=== PATIENT | male | born 1970 | race Caucasian/White ===

== ENCOUNTER 2024-05-31 19:16 | Emergency (ER) | payer BC, SELFPAY ==
[2024-05-31 19:18] VITALS: BP 137/100; PULSE 73; RESP 18; TEMP 36.6; O2SAT 95; BMI 31.6
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
--- NOTE | 2024-05-31 19:54 | RAD_ITS ---
INDICATION: Trauma EXAMINATION/TECHNIQUE: X-RAY - XR Ribs Unilateral W/ PA Chest Min 3 Views COMPARISON: FINDINGS: SOFT TISSUES: No soft tissue swelling or gas. BONES: No displaced fracture. No sclerotic or destructive changes observed. VISUALIZED LUNGS: Clear. No pneumothorax. RAD/Ribs Uni Min 3V w/PA Chest IMPRESSION: No evidence of displaced rib fracture. Electronically Signed: Mitali Rivera MD at 20:51 EDT Reading Location ID and State: [id number] / Tel , Service support ,
--- OUTSIDE RECORDS SUMMARY | 2024-05-31 19:55 | XMS RPT_ITS | CCD ---
Author Organization [facility] CliniSyia Care Team Providers Care Second Operator Name Role Phone LULI RUBY DR~ NEWT[place] Admitting Unavailable NEWTON ROCKWELL MD Consulting Unavailabl e LULI RUBY DR~ [place] Attending Unavailable LULI RUBY, ~ [place] Primary Care Unavailable DR NEWTON ROCKWELL MD Consulting Unavail able NONE, NONE Consulting Unavailable NONE, NONE Consulting Unavailable LULI RUBY, [place] Consulting Unavailabl e GINNY HEMP FIBER TAKER OFF~[phone], GINNY Hunter Att ending Unavailable JUANBALATONIA HEMP FIBER TAKER OFF~[phone], GINNY Hunter Adm itting Unavailable LULI RUBY DR~ [place] Primary Care Unavailable DR NEWTON ROCKWELL MD Consulting Unavail able GINNY HUERTA PATRICIA Elsa Consulting Unavailab le PATRICIA GROSS APRN Consulting Unavailab le Problems Problem Classification Problem Date Documented Da te Episodic/Chronic Allergic reactions (3 sources) Intrinsic (allergic) eczema; Translations: [INTRINSIC ALLERGIC ECZEMA] Onset: 05-26-2024 Chronic Other screening for suspected conditions (not mental disorders or infectious disease) (1 source) Encounter for screening for malignant neoplasm of prostate; Translations: [ENC SCREEN MALIG NEOPLASM PROSTATE] Onset: 05-13-2024 Episodic Results Test Name Value Interpretation Reference Range Facil ity RAST BASIC FOOD PANELon 05-07 Class Description Comment Normal [facility] Comment on above: Result Comment: Wilfredo de la o of Specific IgE Class Description of Class ----- < 0.10 0 Negative 0.10 - 0.31 0/I Equivocal/Low 0.32 - 0.55 I Low 0.56 - 1.40 II Moderate 1.41 - 3.90 III High 3.91 - 19.00 IV Very High 19.01 - 100.00 V Very High >100.00 Very High Performed By: #### M APLE, RAGWEED, LAMBS, ETHIOPIAN, BERMUDA, CAT, MITE, ATENUIS, OAK, DOG #### Performed for [address] [address] [id number] Milk (Cow) <0.10 Normal Class 0 [facility] Comment on above: Performed By: #### M APLE, RAGWEED, LAMBS, ETHIOPIAN, BERMUDA, CAT, MITE, ATENUIS, OAK, DOG #### Performed for [place] [address] [id number] Codfish <0.10 Normal Class 0 [facility] Comment on above: Performed By: #### M APLE, RAGWEED, LAMBS, ETHIOPIAN, BERMUDA, CAT, MITE, ATENUIS, OAK, DOG #### Performed for [address] [address] [id number] Wheat <0.10 Normal Class 0 [facility] Comment on above: Performed By: #### M APLE, RAGWEED, LAMBS, ETHIOPIAN, BERMUDA, CAT, MITE, ATENUIS, OAK, DOG #### Performed for [address] [address] [id number] [place] <0.10 Normal Class 0 [facility] Comment on above: Performed By: #### M APLE, RAGWEED, LAMBS, ETHIOPIAN, BERMUDA, CAT, MITE, ATENUIS, OAK, DOG #### Performed for [place] [address] [id number] Peanut <0.10 Normal Class 0 [facility] Comment on above: Performed By: #### M APLE, RAGWEED, LAMBS, ETHIOPIAN, BERMUDA, CAT, MITE, ATENUIS, OAK, DOG #### Performed for [address] [place], [place] [address] [id number] Soybean <0.10 Normal Class 0 [facility] Comment on above: Performed By: #### M APLE, RAGWEED, LAMBS, ETHIOPIAN, BERMUDA, CAT, MITE, ATENUIS, OAK, DOG #### Performed for [address] [address] [id number] Shrimp <0.10 Normal Class 0 [facility] Comment on above: Performed By: #### M APLE, RAGWEED, LAMBS, ETHIOPIAN, BERMUDA, CAT, MITE, ATENUIS, OAK, DOG #### Performed for [address] [address] [id number] Pork <0.10 Normal Class 0 [facility] Comment on above: Performed By: #### M APLE, RAGWEED, LAMBS, ETHIOPIAN, BERMUDA, CAT, MITE, ATENUIS, OAK, DOG #### Performed for [address] [address] [id number]-ZmS Beef <0.10 Normal Class 0 [facility] Comment on above: Performed By: #### M APLE, RAGWEED, LAMBS, ETHIOPIAN, BERMUDA, CAT, MITE, ATENUIS, OAK, DOG #### Performed for [address] [address] [id number] Mussel <0.10 Normal Class 0 [facility] Comment on above: Performed By: #### M APLE, RAGWEED, LAMBS, ETHIOPIAN, BERMUDA, CAT, MITE, ATENUIS, OAK, DOG #### Performed for [address] [address] [id number] Chocolate/Hodge <0.10 Normal Class 0 [facility] Comment on above: Performed By: #### M APLE, RAGWEED, LAMBS, ETHIOPIAN, BERMUDA, CAT, MITE, ATENUIS, OAK, DOG #### Performed for [address] [address] [id number] Egg, Whole <0.10 Normal Class 0 [facility] Comment on above: Performed By: #### M APLE, RAGWEED, LAMBS, ETHIOPIAN, BERMUDA, CAT, MITE, ATENUIS, OAK, DOG #### Performed for [address] [address] Ig E, [place] <0.10 Normal Class 0 [facility] Comment on above: Performed By: #### M APLE, RAGWEED, LAMBS, ETHIOPIAN, BERMUDA, CAT, MITE, ATENUIS, OAK, DOG #### Performed for [address] [address] Ig E, Tuna <0.10 Normal Class 0 [facility] Comment on above: Performed By: #### M APLE, RAGWEED, LAMBS, ETHIOPIAN, BERMUDA, CAT, MITE, ATENUIS, OAK, DOG #### Performed for [address] [address] ALTERNARIA alternata/tenuiso n 05-30-2024 [id number] Alternaria tenuis <0.10 Normal Class 0 [facility] Comment on above: Performed By: #### M APLE, RAGWEED, LAMBS, ETHIOPIAN, BERMUDA, CAT, MITE, ATENUIS, OAK, DOG #### Performed for [address] [address] RAST BERMUDA GRASSon 024 [id number] Bermuda Grass <0.10 Normal Class 0 [facility] Comment on above: Performed By: #### M APLE, RAGWEED, LAMBS, ETHIOPIAN, BERMUDA, CAT, MITE, ATENUIS, OAK, DOG #### Performed for [address] [address] RAST BOX ELDERon 05-30-2024 [id number]-PxM Maple/[place]on <0.10 Normal Class 0 [facility] Comment on above: Performed By: #### M APLE, RAGWEED, LAMBS, ETHIOPIAN, BERMUDA, CAT, MITE, ATENUIS, OAK, DOG #### Performed for [address] [address] RAST CAT DANDERon 05-30-2024 [id number]-UyI Cat Hair/Dander,Alexandre <0.10 Normal Class 0 [facility] Comment on above: Result Comment: Wilfredo ls of Specific IgE Class Description of Class ----- < 0.10 0 Negative 0.10 - 0.31 0/I Equivocal/Low 0.32 - 0.55 I Low 0.56 - 1.40 II Moderate 1.41 - 3.90 III High 3.91 - 19.00 IV Very High 19.01 - 100.00 V Very High >100.00 Very High Performed By: #### M APLE, RAGWEED, LAMBS, ETHIOPIAN, BERMUDA, CAT, MITE, ATENUIS, OAK, DOG #### Performed for [place] [address] [place], [place] [address] RAST CHICKENon 05-30-2024 [id number]-YkG Chicken <0.10 Normal Class 0 [facility] Comment on above: Performed By: #### M APLE, RAGWEED, LAMBS, ETHIOPIAN, BERMUDA, CAT, MITE, ATENUIS, OAK, DOG #### Performed for [address] [address] RAST CLADOSPORIUM HERBARUMon 05-30-2024 [id number] Cladosporium herbaru <0.10 Normal Class 0 [facility] Comment on above: Result Comment: Wilfredo ls of Specific IgE Class Description of Class ----- < 0.10 0 Negative 0.10 - 0.31 0/I Equivocal/Low 0.32 - 0.55 I Low 0.56 - 1.40 II Moderate 1.41 - 3.90 III High 3.91 - 19.00 IV Very High 19.01 - 100.00 V Very High >100.00 Very High Performed By: #### M APLE, RAGWEED, LAMBS, ETHIOPIAN, BERMUDA, CAT, MITE, ATENUIS, OAK, DOG #### Performed for [address] [address] RAST COCKROACH AMERICANon I103-FrC Cockroach,Citizen Of [place] <0.10 Normal Class 0 [facility] Comment on above: Performed By: #### M APLE, RAGWEED, LAMBS, ETHIOPIAN, BERMUDA, CAT, MITE, ATENUIS, OAK, DOG #### Performed for [address] [address] RAST D FARINAE MITEon 2023 E081-YlR D farinae Mite <0.10 Normal Class 0 [facility] Comment on above: Performed By: #### M APLE, RAGWEED, LAMBS, ETHIOPIAN, BERMUDA, CAT, MITE, ATENUIS, OAK, DOG #### Performed for [address] [address] RAST D PTERONYSSINUSon 05-30 R158-TmS D pteronyssinus <0.10 Normal Class 0 [facility] Comment on above: Performed By: #### M APLE, RAGWEED, LAMBS, ETHIOPIAN, BERMUDA, CAT, MITE, ATENUIS, OAK, DOG #### Performed for [address] [address] RAST DOG DANDERon 05-30-2024 T527-GzX Dog Hair/Dander <0.10 Normal Class 0 [facility] Comment on above: Performed By: #### M APLE, RAGWEED, LAMBS, ETHIOPIAN, BERMUDA, CAT, MITE, ATENUIS, OAK, DOG #### Performed for [address] [address] RAST ETHIOPIAN PLANTAINon 05-07 H509-SyH Plantain, Ecuadorean <0.10 Normal Class 0 [facility] Comment on above: Performed By: #### M APLE, RAGWEED, LAMBS, ETHIOPIAN, BERMUDA, CAT, MITE, ATENUIS, OAK, DOG #### Performed for [facility] [address] [place], [place] [address] RAST ARISTIDES BLUEGRASSon [id number]-FyP Bluegrass, Marthay <0.10 Normal Class 0 [facility] Comment on above: Performed By: #### M APLE, RAGWEED, LAMBS, ETHIOPIAN, BERMUDA, CAT, MITE, ATENUIS, OAK, DOG #### Performed for [facility] [address] [place], [place] [address] RAST LAMBS QUARTERon 024 [id number]-QgC [place]'s [place] <0.10 Normal Class 0 [facility] Comment on above: Performed By: #### M APLE, RAGWEED, LAMBS, ETHIOPIAN, BERMUDA, CAT, MITE, ATENUIS, OAK, DOG #### Performed for [place] [address] [place], [place] [address] RAST OAK WHITEon 05-30-2024 [id number]-BlE Lomax, White <0.10 Normal Class 0 [facility] Comment on above: Performed By: #### M APLE, RAGWEED, LAMBS, ETHIOPIAN, BERMUDA, CAT, MITE, ATENUIS, OAK, DOG #### Performed for [place] [address] [place], [place] [address] RAST RAGWEED COMMONon 2023 [id number]-HfW Ragweed, Short/Commo <0.10 Normal Class 0 [facility] Comment on above: Performed By: #### M APLE, RAGWEED, LAMBS, ETHIOPIAN, BERMUDA, CAT, MITE, ATENUIS, OAK, DOG #### Performed for [place] [address] [place], [place] [address] 25-hydroxyvitamin D [Mass/Vo l]on 05-12-2024 25-hydroxyvitamin D3 [Mass/Vol] 48.2 ng/mL Normal 30.0-100.0 [facility] Comment on above: Performed By: #### M APLE, RAGWEED, LAMBS, ETHIOPIAN, BERMUDA, CAT, MITE, ATENUIS, OAK, DOG #### Performed for [facility] [address] [address] HVITD VITAMIN D INTERPRETATION VITAMIN D STATUS RANGE DEFICIENCY <20 ng/mL INSUFFICIENCY 20-30 ng/mL SUFFICIENCY 30-100 ng/mL TOXICITY >100 ng/mL Normal [facility] Comment on above: Performed By: #### M APLE, RAGWEED, LAMBS, ETHIOPIAN, BERMUDA, CAT, MITE, ATENUIS, OAK, DOG #### Performed for [address] [address] CBC W Auto Differential pane l (Bld)on 05-12-2024 Basophils (Bld) [#/Vol] 0.06 10*3/uL Normal <=0.70 [facility] Comment on above: Performed By: #### M APLE, RAGWEED, LAMBS, ETHIOPIAN, BERMUDA, CAT, MITE, ATENUIS, OAK, DOG #### Performed for [address] [address] Basophils/100 WBC (Bld) 1.0 % Normal <=2.0 [facility] Comment on above: Performed By: #### M APLE, RAGWEED, LAMBS, ETHIOPIAN, BERMUDA, CAT, MITE, ATENUIS, OAK, DOG #### Performed for [address] [address] Eosinophils (Bld) [#/Vol] 0.19 10*3/uL Normal <=0.70 [facility] Comment on above: Performed By: #### M APLE, RAGWEED, LAMBS, ETHIOPIAN, BERMUDA, CAT, MITE, ATENUIS, OAK, DOG #### Performed for [address] [address] Eosinophils/100 WBC (Bld) 3.3 % Normal <=10.0 [facility] Comment on above: Performed By: #### M APLE, RAGWEED, LAMBS, ETHIOPIAN, BERMUDA, CAT, MITE, ATENUIS, OAK, DOG #### Performed for [address] [address] Erythrocyte distribution width (RBC) [Entitic vol] 36.6 fL Normal 35.1-43.9 [facility] Comment on above: Performed By: #### M APLE, RAGWEED, LAMBS, ETHIOPIAN, BERMUDA, CAT, MITE, ATENUIS, OAK, DOG #### Performed for [address] [address] Hematocrit (Bld) [Volume fraction] 43.4 % Normal 40.0-54.0 [facility] Comment on above: Performed By: #### M APLE, RAGWEED, LAMBS, ETHIOPIAN, BERMUDA, CAT, MITE, ATENUIS, OAK, DOG #### Performed for [address] [address] Hemoglobin (Bld) [Mass/Vol] 15.0 g/dL Normal 14.0-18.0 [facility] Comment on above: Performed By: #### M APLE, RAGWEED, LAMBS, ETHIOPIAN, BERMUDA, CAT, MITE, ATENUIS, OAK, DOG #### Performed for [address] [address] Immature granulocytes (Bld) [#/Vol] 0.01 10*3/uL Normal <=0.10 [facility] Comment on above: Performed By: #### M APLE, RAGWEED, LAMBS, ETHIOPIAN, BERMUDA, CAT, MITE, ATENUIS, OAK, DOG #### Performed for [address] [address] Immature granulocytes/100 WBC (Bld) 0.20 % Normal <=1.50 [facility] Comment on above: Performed By: #### M APLE, RAGWEED, LAMBS, ETHIOPIAN, BERMUDA, CAT, MITE, ATENUIS, OAK, DOG #### Performed for [address] [address] Lymphocytes (Bld) [#/Vol] 2.24 10*3/uL Normal 1.20-3.40 [facility] Comment on above: Performed By: #### M APLE, RAGWEED, LAMBS, ETHIOPIAN, BERMUDA, CAT, MITE, ATENUIS, OAK, DOG #### Performed for [address] [address] Lymphocytes/100 WBC (Bld) 38.6 % Normal 20.0-40.0 [facility] Comment on above: Performed By: #### M APLE, RAGWEED, LAMBS, ETHIOPIAN, BERMUDA, CAT, MITE, ATENUIS, OAK, DOG #### Performed for [address] [address] MCH (RBC) [Entitic mass] 27.9 pg Normal 27.0-31.0 [facility] Comment on above: Performed By: #### M APLE, RAGWEED, LAMBS, ETHIOPIAN, BERMUDA, CAT, MITE, ATENUIS, OAK, DOG #### Performed for [address] [address] MCHC (RBC) [Mass/Vol] 34.6 g/dL Normal 32.0-36.0 [facility] Comment on above: Performed By: #### M APLE, RAGWEED, LAMBS, ETHIOPIAN, BERMUDA, CAT, MITE, ATENUIS, OAK, DOG #### Performed for [address] [address] MCV (RBC) [Entitic vol] 80.8 fL Normal 80.0-100.0 [facility] Comment on above: Performed By: #### M APLE, RAGWEED, LAMBS, ETHIOPIAN, BERMUDA, CAT, MITE, ATENUIS, OAK, DOG #### Performed for [address] [address] Monocytes (Bld) [#/Vol] 0.60 10*3/uL Normal 0.10-0.60 [facility] Comment on above: Performed By: #### M APLE, RAGWEED, LAMBS, ETHIOPIAN, BERMUDA, CAT, MITE, ATENUIS, OAK, DOG #### Performed for [address] [place] [address], [place] [address] Monocytes/100 WBC (Bld) 10.3 % High <=8.0 [facility] Comment on above: Performed By: #### M APLE, RAGWEED, LAMBS, ETHIOPIAN, BERMUDA, CAT, MITE, ATENUIS, OAK, DOG #### Performed for [place] [address] [place], [place] [address] Neutrophils (Bld) [#/Vol] 2.70 10*3/uL Normal 1.40-6.50 [facility] Comment on above: Performed By: #### M APLE, RAGWEED, LAMBS, ETHIOPIAN, BERMUDA, CAT, MITE, ATENUIS, OAK, DOG #### Performed for [address] [address] Neutrophils/100 WBC (Bld) 46.6 % Low 50.0-70.0 [facility] Comment on above: Performed By: #### M APLE, RAGWEED, LAMBS, ETHIOPIAN, BERMUDA, CAT, MITE, ATENUIS, OAK, DOG #### Performed for [address] [address] Nucleated RBC (Bld) [#/Vol] 0.00 10*3/uL Normal <=0.10 [facility] Comment on above: Performed By: #### M APLE, RAGWEED, LAMBS, ETHIOPIAN, BERMUDA, CAT, MITE, ATENUIS, OAK, DOG #### Performed for [address] [address] Platelet mean volume (Bld) [Entitic vol] 10.7 fL Normal 9.0-13.0 [facility] Comment on above: Performed By: #### M APLE, RAGWEED, LAMBS, ETHIOPIAN, BERMUDA, CAT, MITE, ATENUIS, OAK, DOG #### Performed for [address], [place] [address] Platelets (Bld) [#/Vol] 253 10*3/uL Normal 130-400 [facility] Comment on above: Performed By: #### M APLE, RAGWEED, LAMBS, ETHIOPIAN, BERMUDA, CAT, MITE, ATENUIS, OAK, DOG #### Performed for [facility] [address] [place], [place] [address] RBC (Bld) [#/Vol] 5.37 10*6/uL Normal 4.00-6.30 [facility] Comment on above: Performed By: #### M APLE, RAGWEED, LAMBS, ETHIOPIAN, BERMUDA, CAT, MITE, ATENUIS, OAK, DOG #### Performed for [facility] [address] [place], [place] [address] WBC (Bld) [#/Vol] 5.80 10*3/uL Normal 4.80-10.80 [facility] Comment on above: Performed By: #### M APLE, RAGWEED, LAMBS, ETHIOPIAN, BERMUDA, CAT, MITE, ATENUIS, OAK, DOG #### Performed for [facility] [address] [place], [place] [address] Comprehensive metabolic 2000 panelon 05-12-2024 Albumin [Mass/Vol] 3.9 g/dL Normal 3.4-5.0 [facility] Comment on above: Performed By: #### M APLE, RAGWEED, LAMBS, ETHIOPIAN, BERMUDA, CAT, MITE, ATENUIS, OAK, DOG #### Performed for [facility] [address] [place], [place] [address] ALP [Catalytic activity/Vol] 63 U/L Normal 50-136 [facility] Comment on above: Performed By: #### M APLE, RAGWEED, LAMBS, ETHIOPIAN, BERMUDA, CAT, MITE, ATENUIS, OAK, DOG #### Performed for [facility] [address] [place], [place] [address] ALT [Catalytic activity/Vol] 27 U/L Normal 16-63 [facility] Comment on above: Performed By: #### M APLE, RAGWEED, LAMBS, ETHIOPIAN, BERMUDA, CAT, MITE, ATENUIS, OAK, DOG #### Performed for [facility] [address] [place], [place] [address] Anion gap [Moles/Vol] 5.0 mmol/L Normal <=15.0 [facility] Comment on above: Performed By: #### M APLE, RAGWEED, LAMBS, ETHIOPIAN, BERMUDA, CAT, MITE, ATENUIS, OAK, DOG #### Performed for [facility] [address] [place], [place] [address] AST [Catalytic activity/Vol] 23 U/L Normal 15-37 [facility] Comment on above: Performed By: #### M APLE, RAGWEED, LAMBS, ETHIOPIAN, BERMUDA, CAT, MITE, ATENUIS, OAK, DOG #### Performed for [facility] [address] [place], [place] [address] Bilirubin [Mass/Vol] 0.5 mg/dL Normal 0.2-1.0 [facility] Comment on above: Performed By: #### M APLE, RAGWEED, LAMBS, ETHIOPIAN, BERMUDA, CAT, MITE, ATENUIS, OAK, DOG #### Performed for [facility] [address] [place], [place] [address] Calcium [Mass/Vol] 9.7 mg/dL Normal 8.5-10.1 [facility] Comment on above: Performed By: #### M APLE, RAGWEED, LAMBS, ETHIOPIAN, BERMUDA, CAT, MITE, ATENUIS, OAK, DOG #### Performed for [facility] [address] [place], [place] [address] Chloride [Moles/Vol] 104 mmol/L Normal 98-107 [facility] Comment on above: Performed By: #### M APLE, RAGWEED, LAMBS, ETHIOPIAN, BERMUDA, CAT, MITE, ATENUIS, OAK, DOG #### Performed for [facility] [address] [place], [place] [address] CO2 [Moles/Vol] 31 mmol/L Normal 21-32 [facility] Comment on above: Performed By: #### M APLE, RAGWEED, LAMBS, ETHIOPIAN, BERMUDA, CAT, MITE, ATENUIS, OAK, DOG #### Performed for [facility] [address] [place], [place] [address] Creatinine [Mass/Vol] 0.85 mg/dL Normal 0.67-1.17 [facility] Comment on above: Performed By: #### M APLE, RAGWEED, LAMBS, ETHIOPIAN, BERMUDA, CAT, MITE, ATENUIS, OAK, DOG #### Performed for [facility] [address] [place], [place] [address] GFR/1.73 sq M.predicted MDRD (S/P/Bld) [Vol rate/Area] mL/min/{1.73_m2} Normal >=60 [facility] Comment on above: Performed By: #### M APLE, RAGWEED, LAMBS, ETHIOPIAN, BERMUDA, CAT, MITE, ATENUIS, OAK, DOG #### Performed for [facility] [address] [place], [place] [address] Glucose [Mass/Vol] 90 mg/dL Normal 74-106 [facility] Comment on above: Performed By: #### M APLE, RAGWEED, LAMBS, ETHIOPIAN, BERMUDA, CAT, MITE, ATENUIS, OAK, DOG #### Performed for [facility] [address] [place], [place] [address] HGFR GLOMERULAR FILTRATION RATE INTERPRETATION~The eGFR is calculated using the MDRD equation.~This equation has been validated in patients with chronic kidney disease;~however, it underestimates the GFR in healthy patients with GFR's over 60 mL/min.~The equation is not valid in children under the age of 18.~NOTE: Criteria for Chronic Kidney Disease:~ ~1. Kidney damage for at least three months, as defined~by structural or functional abnormalities of the kidney,~with or without decreased glomerular filtration rate, manifested by either:~* Pathological abnormalities or~* Markers of Kidney damage, including abnormalities in~the composition of the blood or urine or abnormalities in imaging tests.~ ~2. GFR <60 mL/min/1.73 m squared for at least three months, with or without kidney damage.~ Normal [facility] Comment on above: Performed By: #### M APLE, RAGWEED, LAMBS, ETHIOPIAN, BERMUDA, CAT, MITE, ATENUIS, OAK, DOG #### Performed for [facility] [address] [place], [place] [address] Potassium [Moles/Vol] 4.5 mmol/L Normal 3.5-5.1 [facility] Comment on above: Performed By: #### M APLE, RAGWEED, LAMBS, ETHIOPIAN, BERMUDA, CAT, MITE, ATENUIS, OAK, DOG #### Performed for [place] [place], [place] [address] Protein [Mass/Vol] 6.9 g/dL Normal 6.4-8.2 [facility] Comment on above: Performed By: #### M APLE, RAGWEED, LAMBS, ETHIOPIAN, BERMUDA, CAT, MITE, ATENUIS, OAK, DOG #### Performed for [address] [address] Sodium [Moles/Vol] 140 mmol/L Normal 136-145 [facility] Comment on above: Performed By: #### M APLE, RAGWEED, LAMBS, ETHIOPIAN, BERMUDA, CAT, MITE, ATENUIS, OAK, DOG #### Performed for [address] [address] Urea nitrogen [Mass/Vol] 18 mg/dL Normal 9-20 [facility] Comment on above: Performed By: #### M APLE, RAGWEED, LAMBS, ETHIOPIAN, BERMUDA, CAT, MITE, ATENUIS, OAK, DOG #### Performed for [address] [address] HbA1c Calc (Bld) [Mass fract ion]on 05-12-2024 Average glucose Estimated from glycated hemoglobin (Bld) [Mass/Vol] 97 mg/dL Normal 68-125 [facility] Comment on above: Performed By: #### M APLE, RAGWEED, LAMBS, ETHIOPIAN, BERMUDA, CAT, MITE, ATENUIS, OAK, DOG #### Performed for [address] [address] HA1C A1C INTERPRETATION %A1c (NGSP) Interpretation 3.8 - 6.4 Non-Diabetic Range 5.7 - 6.4 Prediabetic >6.5 Action Suggested The eAG (estimated average glucose) is an estimation of one?s average blood glucose level, calculated based on A1C test results, reported using the same units (mg/dL) seen on blood glucose meters. Normal [facility] Comment on above: Performed By: #### M APLE, RAGWEED, LAMBS, ETHIOPIAN, BERMUDA, CAT, MITE, ATENUIS, OAK, DOG #### Performed for [facility] [address] [place], [place] [address] HbA1c (Bld) [Mass fraction] 5.0 %A1C Normal 4.2-6.3 [facility] Comment on above: Performed By: #### M APLE, RAGWEED, LAMBS, ETHIOPIAN, BERMUDA, CAT, MITE, ATENUIS, OAK, DOG #### Performed for [facility] [address] [place], [place] [address] Lipid panel with direct LDLo n 05-12-2024 Cholesterol [Mass/Vol] 176 mg/dL Normal <=200 [facility] Comment on above: Performed By: #### M APLE, RAGWEED, LAMBS, ETHIOPIAN, BERMUDA, CAT, MITE, ATENUIS, OAK, DOG #### Performed for [facility] [address] [place], [place] [address] Cholesterol in HDL [Mass/Vol] 38 mg/dL Low 40-59 [facility] Comment on above: Performed By: #### M APLE, RAGWEED, LAMBS, ETHIOPIAN, BERMUDA, CAT, MITE, ATENUIS, OAK, DOG #### Performed for [facility] [address] [place], [place] [address] Cholesterol in LDL [Mass/Vol] 115 mg/dL High 5-100 [facility] Comment on above: Performed By: #### M APLE, RAGWEED, LAMBS, ETHIOPIAN, BERMUDA, CAT, MITE, ATENUIS, OAK, DOG #### Performed for [facility] [address] [place], [place] [address] Cholesterol in LDL/Cholesterol in HDL [Mass ratio] 3.0 {ratio} Normal [facility] Comment on above: Performed By: #### M APLE, RAGWEED, LAMBS, ETHIOPIAN, BERMUDA, CAT, MITE, ATENUIS, OAK, DOG #### Performed for [facility] [address] [place], [place] [address] Cholesterol.total/Cho lesterol in HDL [Mass ratio] 4.6 {ratio} Normal [facility] Comment on above: Performed By: #### M APLKenisha, RAGWEED, LAMBS, ETHIOPIAN, BERMUDA, CAT, MITE, ATENUIS, OAK, DOG #### Performed for [facility] [address], [place] [address] HCHOL CHOLESTEROL INTERPRETATION Desirable <200 Borderline High 200-239 High >240 Normal [facility] Comment on above: Performed By: #### M APLKenisha, RAGWEED, LAMBS, ETHIOPIAN, BERMUDA, CAT, MITE, ATENUIS, OAK, DOG #### Performed for [id number] [place], [place] [address] HLDL LDL INTERPRETATION Desirable <100 Near Optimal 100-129 Borderline High 130-159 High 160-190 Very High >190 Normal [facility] Comment on above: Performed By: #### M RAMIRO, RAGCOLLINS, LAMBS, ETHIOPIAN, BERMUDA, CAT, MITE, ATENUIS, OAK, DOG #### Performed for [facility] [address] [place], [place] [address] HLIPID ATEROSCLEROSIS RISK FACTORS FOR LDL, HDL, AND CHOLESTEROL RISK FACTOR SEX LDL/HDL CHOL/HDL 1/2 Average M 1.00 3.43 F 1.47 3.27 Average M 3.55 4.97 F 3.22 4.44 2X Average M 6.25 9.55 F 5.03 7.05 3X Average M 7.99 23.39 F 6.14 11.04 Normal [facility] Comment on above: Performed By: #### M APLKenisha, RAGWEED, LAMBS, ETHIOPIAN, BERMUDA, CAT, MITE, ATENUIS, OAK, DOG #### Performed for [address] [place], [place] [address] HTRIG TRIGLYCERIDES INTERPRETATION Normal <150 Borderline High 150-199 High 200-499 Very High >500 Normal [facility] Comment on above: Performed By: #### M APLE, RAGWEED, LAMBS, ETHIOPIAN, BERMUDA, CAT, MITE, ATENUIS, OAK, DOG #### Performed for [facility] [address] [place], [place] [address] Triglyceride [Mass/Vol] 111 mg/dL Normal <=150 [facility] Comment on above: Performed By: #### M APLE, RAGWEED, LAMBS, ETHIOPIAN, BERMUDA, CAT, MITE, ATENUIS, OAK, DOG #### Performed for [facility] [address] [place], [place] [address] PSA SCREENon 05-12-2024 Prostate specific Ag [Mass/Vol] 0.35 ng/mL Normal <=4.00 [facility] Comment on above: Performed By: #### 2 857-1 #### [place] [address] [place], [place] [address] Returned Telephone Equipment Appraiser - Lala MENDOZA [id number] TSH DL <= 0.05 mIU/L Qnon TSH Qn 0.104 uIU/mL Low 0.358-3.740 [facility] Comment on above: Performed By: #### M APLE, RAGWEED, LAMBS, ETHIOPIAN, BERMUDA, CAT, MITE, ATENUIS, OAK, DOG #### Performed for [address] [place], [place] [address] Encounters Encounter Date Encounter Type Care Provider Facility Start: 05-26-2024 End: 05-26-2024 ambulatory NEWTON ROCKWELL MD Facility:[facility] Start: 05-13-2024 Encounter for genera l adult medical examination without abnormal findings ~[id number] NEWTON ROCKWELL MD [facility] Start: 05-12-2024 End: 05-12-2024 ambulatory [id number] ROCKWELL MD Facility:[facility] Start: 05-12-2024 End: 05-12-2024 Encounter for general adult medical examination without abnormal findings [id number] ROCKWELL MD Facility:[facility] Payers Date Payer Category Payer Unknown [id number] 1970 Unknown [id number] Unknown [id number] Summary Purpose Family History No Family History Records Found Advance Directives No Advanced Directives Records Found Additional Source Comments (unrecognized sect ion and content) No Status Records Found INFORMATION SOURCE (unrecogn ized section and content) DATE CREATED AUTHOR 05/31/2024 [facility] FOR RECORDS PERTAINING TO PATIENTS WHO ARE OR HAVE BEEN ENROLLED IN A CHEMICAL DEPENDENCY/SUBSTANCEABUSE PROGRAM, SOME INFORMATION MAY BE OMITTED. This clinical summary was aggregated from multiple sources. Caution should be exercised in using it in the provision of clinical care. This summary normalizes information from multiple sources, and as a consequence, information in this document may materially change the coding, format and clinical context of patient data. In addition, data may be omitted in some cases. CLINICAL DECISIONS SHOULD BE BASED ON THE PRIMARY CLINICAL RECORDS. [facility] provides no warranty or guarantee of the accuracy or completeness of information in this document.
--- NOTE | 2024-05-31 20:00 | RAD_ITS ---
STUDY: X-RAY - LEFT CLAVICLE REASON FOR EXAM: Male, 53 years old. Injury/Pain TECHNIQUE: view(s) of the clavicle. COMPARISON: FINDINGS: No acute fracture. Old healed fracture deformity of the mid clavicle. Normal acromioclavicular articulation. Normal visualized sternoclavicular articulation. Normal visualized pulmonary apex. RAD/Clavicle IMPRESSION: No acute findings. Electronically Signed: Mitali Rivera MD at 20:48 EDT Reading Location ID and State: [id number] / Tel , Service support ,
[2024-05-31 21:54] VITALS: BP 129/91; PULSE 78; RESP 16; TEMP 36.6; O2SAT 98
== END 2024-05-31 21:58 | disposition home or self-care (01) ==
PROVIDERS: Emergency Provider Emergency Medicine; PCP Internal Medicine; Visit Provider Emergency Medicine
DX: S20.212A Contusion of left front wall of thorax, initial encounter (principal); S40.212A Abrasion of left shoulder, initial encounter; M25.511 Pain in right shoulder; R10.9 Unspecified abdominal pain; V43.52XA Car driver injured in collision with other type car in traffic accident, initial encounter; I10 Essential (primary) hypertension; E03.9 Hypothyroidism, unspecified; Z79.890 Hormone replacement therapy
CPT/HCPCS: 71101; 73000; 99284